=== PATIENT | female | born 1960 | race Caucasian/White ===

== ENCOUNTER → 2016-08-31 | Day surgery (SDC) | payer OTHER ==
[~2016-08-31] MED LIST: CEPH500C3 PO; LACTATED RINGER'S 1000 ML INJ 1,000 ML ONE; LEVO25TA36 PO; OXYC-360 PO; PROPOFOL 500 MG/50 ML BTL IV ONE
== END | disposition home or self-care (01) ==
LOC: ESDC 08:32
PROVIDERS: ATTEND Internal Medicine Gastroenterology
DX: Z12.11 Encounter for screening for malignant neoplasm of colon (principal); R13.10 Dysphagia, unspecified; K44.9 Diaphragmatic hernia without obstruction or gangrene; K22.2 Esophageal obstruction
CPT/HCPCS: 00740; 00810; 43239; 43248; 45378; 88305; 88312; J3010; J7120

== ENCOUNTER → 2017-07-05 | Outpatient (CLI) | payer OTHER ==
[~2017-07-05] MED LIST changes: +BUPR150T3 PO; +FURO40TA PO; +KLOR10TA PO; -LACTATED RINGER'S 1000 ML INJ 1,000 ML ONE; +LEVO175T2 PO; +LISI10TA3 PO; -PROPOFOL 500 MG/50 ML BTL IV ONE; +VERA1TAB17 PO
[2017-07-05 11:20] LABS: HEMATOCRIT 38.4 % (35.0-46.0); MEAN CELL VOLUME 92.9 FL (80.0-100.0); MEAN CORPUSCULAR HEMOGLOBIN 30.7 PG (27.0-34.0); PLATELET COUNT 216 TH/MM3 (150-450); RED BLOOD COUNT 4.14 MIL/MM3 (4.00-5.30); RED CELL DISTRIBUTION WIDTH 12.6 % (11.6-17.2); REVIEW FLAG FINAL; WHITE BLOOD COUNT 4.7 TH/MM3 (4.0-11.0)
[2017-07-05 11:27] LABS: APTT (PATIENT) 25.3 SEC (24.3-30.1); PROTHROMBIN TIME - PATIENT 10.3 SEC (9.8-11.6)
[2017-07-05 11:44] LABS: ANION GAP 8 MEQ/L (5-15); AST (GOT) 17 U/L (15-37); BICARBONATE 27.4 MEQ/L (21.0-32.0); BLOOD UREA NITROGEN 14 MG/DL (7-18); CHLORIDE 105 MEQ/L (98-107); GLOMERULAR FILTRATION RATE 57 ML/MIN (>89); GLUCOSE,FASTING 90 MG/DL (74-99); SODIUM (NA) 140 MEQ/L (136-145)
[2017-07-05 11:48] LABS: ALKALINE PHOSPHATASE 78 U/L (45-117); ALT (GPT) 21 U/L (10-53); TOTAL BILIRUBIN ADULT 0.4 MG/DL (0.2-1.0)
[2017-07-05 12:47] LABS: BACTERIA, URINE RARE /hpf; BLOOD, URINE SMALL (NEG); COMMENT (UR) CATH-CULTURE IND; CULTURE IF INDICATED CATH CULTURE IND; GLUCOSE,URINE NEG (NEG); KETONE, URINE NEG (NEG); MUCUS URINE MANY /lpf (OCC); NITRITE,URINE NEG (NEG); PH, URINE 6.5 (5.0-8.5); SQUAMOUS EPITHELIAL CELL URINE <1 /hpf (0-5); URINE COLOR YELLOW (YELLW/STRAW)
== END ==
LOC: CPRE 10:25
PROVIDERS: ATTEND Surgery
DX: Z01.810 Encounter for preprocedural cardiovascular examination (principal); Z01.812 Encounter for preprocedural laboratory examination; Z01.818 Encounter for other preprocedural examination
CPT/HCPCS: 36415; 80053; 81001; 85027; 85610; 85730; 87086

== ENCOUNTER 2017-07-13 05:15 | Inpatient (IN) | payer OTHER ==
--- NOTE | 2017-07-06 14:57 | MH ---
cc: Angelo RAHMAN M.D. DATE OF ADMISSION: 07/13/2017 ADMITTING DIAGNOSIS: e patient has recent to be a 18-day admission surgery 07/13/2017 ADMISSION DIAGNOSIS Osteoarthritic degeneration left knee now being admitted for left total knee arthroplasty. ADMISSION HISTORY AND PHYSICAL This follow this 48-year O morbidly obese female is being admitted today for osteoarthritic degeneration left knee. OTHER PAST HISTORY: The patient has a history of low back pain hypertension CURRENT MEDICATIONS: Verapamil Levothyroxine PAST SURGERIES Carpal tunnel release Cholecystectomy. REVIEW OF SYSTEMS Noncontributory. FAMILY HISTORY Noncontributory. SOCIAL HISTORY: She does not smoke or drink. ALLERGIES DARVON PHYSICAL EXAMINATION: IN GENERAL: We find a 56-year-old female, morbidly obese, complaining of pain in the left knee. VITAL SIGNS: Blood pressure 126/72, pulse 77 regular, respirations 16, temperature 97.8, pulse oximetry 97% on room air. HEAD, EYES, EARS, NOSE, AND THROAT: Eyes Pupils equal, round and reactive to light, extraocular muscles intact ear, nose, and mouth clear. NECK: Supple LUNGS: Clear. HEART: Regular rate. ABDOMEN: Soft. BOWEL SOUNDS: Nontender. EXTREMITIES: The left knee is tender with crepitance on range of motion. NEUROVASCULAR: She is neurovascularly Intact to her toes. IMPRESSION Time is severe painful osteoarthritic degeneration left knee. PLAN Admission for left total knee arthroplasty today. The patient given prescription postoperative pain anticoagulation control in the office understands the use Hibiclens scrub and Bactroban preoperatively and plans on going to rehab at a halfway facility after surgery. Thank you very much. MD KENDRICK Talavera/mi /2:10 PM /2:39 PM
[~2017-07-13] VITALS: Ht 163.8 cm; Wt 143.2 kg
[~2017-07-13 05:15] MED LIST changes: -CEPH500C3 PO; -LEVO25TA36 PO; -OXYC-360 PO
[2017-07-13] MEDS ORDERED: VANCOMYCIN 1000 MG/NS 250 ML (for <70 kg) IV SCH ×2 (05:45)
[2017-07-13] MEDS ORDERED: ceFAZolin 2 GM PREMIX 50 ML IV SCH (05:45)
[2017-07-13] MEDS ORDERED: POVIDONE IODINE 5% (ANTISEPSIS KIT) 4 APPLICATIONS EACH NARE PRN (05:45)
[2017-07-13] MEDS ORDERED: METOPROLOL TARTRATE 25 MG TAB PO PRN (05:45)
[2017-07-13] MEDS ORDERED: CHLORHEXIDINE GLUCONATE 2 % 1 PACK (2 CLOTHS) TOPICAL PRN (05:45)
[2017-07-13] MEDS ORDERED: LACTATED RINGER'S 1000 ML IV PRN (05:45)
[2017-07-13] MEDS ORDERED: CHLORHEXIDINE GLUCONATE 4% SOLN 120 ML BTL TOPICAL SCH (05:45)
[2017-07-13] MEDS ORDERED: SODIUM CHLORID 0.9% 500 ML IV PRN (05:45)
[2017-07-13] MEDS ORDERED: ceFAZolin INJ 1,000 MG VIAL ONE (06:48)
[2017-07-13] MEDS ORDERED: DEXAMETHASONE SOD PHOS 20 MG/5 ML VIAL IV SCH (07:00)
[2017-07-13] MEDS ORDERED: ROPIVACAINE 0.5% PF INJ 30 ML VIAL ONE (07:26)
[2017-07-13] MEDS ORDERED: SODIUM CHLORIDE 0.9% 20 ML VIAL ONE (07:26)
[2017-07-13] MEDS ORDERED: SODIUM CHLORIDE 0.9% IV SCH ×2 (08:00→11:00)
[2017-07-13] MEDS ORDERED: TRANEXAMIC ACID IV SCH ×2 (08:00→11:00)
[2017-07-13] MEDS ORDERED: BUPIVACAINE LIPOSO PF 1.3% INJ 20 ML in SODIUM CHLORIDE 0.9% INJ 100 ML P-ARTICULR SCH (08:00)
[2017-07-13] MEDS ORDERED: PROPOFOL 500 MG/50 ML INJ 50 ML ONE (08:09)
[2017-07-13] MEDS ORDERED: KETAMINE HCL 500 MG/5 ML VIAL ONE (08:09)
[2017-07-13] MEDS ORDERED: ONDANSETRON HCL 4 MG/2 ML VIAL IVP PRN (10:45)
[2017-07-13] MEDS ORDERED: Post-op Orders (for Pharmacy) XX ONE (10:45)
[2017-07-13] MEDS ORDERED: diphenhydrAMINE HCL 50 MG/ML VIAL IV PUSH PRN (10:45)
[2017-07-13] MEDS ORDERED: TRANEXAMIC ACID INJ 0 MG in SODIUM CHLORIDE 0.9% INJ 100 ML IV SCH (10:45)
[2017-07-13] MEDS ORDERED: TEMAZEPAM 15 MG CAP PO PRN (10:45)
[2017-07-13] MEDS ORDERED: NALOXONE HCL 0.4 MG/ML AMP IV PUSH PRN (10:45)
--- NOTE | 2017-07-13 10:49 | HHI.FF ---
Face to Face Verification Diagnosis: (1) Status post total left knee replacement Physical Therapy Gait training Knee: Total knee, Protocol: Left, Full weight bearing Canvas Knee Splint: When in bed & 2 pillows btw thighs Nursing RN: 3 days/week x 2 weeks Nursing: Dressing changes Dressing Changes: Daily dressing change, 4x4s, Gauze, Paper tape I have seen patient Anitra Gunter on 07/13/17. My clinical findings support the need for the requested home health care services because: Limited ability to care for self High risk of falls I certify that my clinical findings support that this patient is homebound because: Unsteady gait/balance Angelo Landrum MD Jul 13, 2017 10:49
[2017-07-13] MEDS ORDERED: ADJUSTABLE COMM1 MIS (10:51)
[2017-07-13] MEDS ORDERED: WALKER WHEELS/F1 MIS (10:51)
[2017-07-13] MEDS ORDERED: CPMMACHINE (10:51)
[2017-07-13] MEDS: LACTATED RINGER'S 1000 ML INJ 1,000 ML IV SCH ×2 (11:00→22:40)
[2017-07-13] MEDS ORDERED: DO NOT ADM ANY ANTICOAGULANT DRUGS PRN (11:00)
--- NOTE | 2017-07-13 11:06 | HHI.PR ---
Immediate Post Op Note Procedure Date: Jul 13, 2017 Pre Op Diagnosis: Osteoarthritic degeneration left knee Post Op Diagnosis: Osteoarthritic degeneration left knee Surgeon: Angelo Landrum MD Web Content Writer(s): Anitra ROBERTS Procedure: Left Total Knee Arthroplasty Complications: none Specimen(s) removed: none Estimated blood loss: 100cc Anesthesia: Spinal Drains: None IVF Urinary Output (mLs): 0 (no sullivan) Tourniquet time (min at mmHg) 70 mins at 300 mmHg Patient to: PACU Patient Condition: Good Implant/Devices: SEE IMPLANT LOG (if applicable) Date/Time of Procedure: SEE SURGICAL CARE RECORD Anitra Douglas Jul 13, 2017 11:06
--- NOTE | 2017-07-13 11:11 | MP ---
cc: Angelo RAHMAN M.D. DATE OF SURGERY: 07/13/2017 PREOPERATIVE DIAGNOSIS: Severe osteoarthritic degeneration left knee. POSTOPERATIVE DIAGNOSIS: Severe osteoarthritic degeneration left knee. OPERATION: Left total knee arthroplasty SURGEON Dr. Rahman COMPUTER TECHNOLOGY INSTRUCTOR: ARMANDO Tellez ANESTHESIA: General intubation and block. Exparel 120 cc around knee joint for extra pain control. ESTIMATED BLOOD LOSS: COUNTS: Sponge and suture counts were correct. COMPONENTS: Consensus components size four femur, three tibia, 12 insert and one patella, two batches of Depuye cement PROCEDURE: After successful induction of anesthesia, the patient is placed on the operating room table in the supine position. The knee is prepped and draped in the usual manner. A tourniquet is inflated at the upper thigh and set to 300 mmHg pressure after exsanguination of the lower extremity. A longitudinal incision is made extending from 3 inches proximal to the superior pole of the patella, across the patella in longitudinal fashion, and down past the insertion of the tibial tubercle into the proximal tibia. The incision is carried down through subcutaneous tissue along the medial aspect of the patella and retinaculum, down through the capsule to expose the knee joint. The patella and patellar tendon are freed up enough to allow the patella to be inverted and retracted off the lateral side of the knee joint. The knee joint is left exposed. Small osteophytes are removed. All soft tissue is removed to allow proper position of the femoral and tibial cutting jig guide. The first femoral jig is then inserted along the distal end of the femur after first measuring to decide whether this is a small, medium, or large component. The notch is then drilled and the tibial cutting guide inserted into the femoral cutting guide, along with the ankle brace to allow for proper measurement of the tibial cutting surface that needed to be resected. Pins are inserted into the tibial cutting jig and femoral cutting jig to hold them in place. An oscillating saw is then used to resect the surface of the tibia. The surface of the tibia is then completely removed using sharp and blunt dissection. The anterior and posterior cuts of the femur are then made as well using an oscillating saw through the cutting guide. All guides are then removed and the varus/valgus angulation cutting guide applied to the femur for proper measurement of the proper amount of valgus. The anterior cutting guide for the femur is then inserted at the anterior femoral cuts made. Next, the first block trial is inserted into the femur to allow for proper condyle drill holes to be made which are then made followed by removal of the bone between the condyles using an oscillating saw as well as the bone removed at the most posterior surface of the condyle. After this, this guide is removed and the chamfer cuts made using the chamfer cutting guide from both anterior and posterior. Next, the femoral trial is then inserted, the tibial surface reflected anterior to expose the tibial surface and a tibial stem guide is inserted after first measuring for a standard, standard plus, large, or large plus surface to be used. After the stem is impacted the trial tibial surface is applied followed by the trial meniscal components. After full range of motion is found with the appropriate length meniscal components varying the patella is prepared by resecting the posterior aspect of the patella using an oscillating saw, inserting a trial. The trial is then removed and the cruciate cutting guide applied using the bur to cut the cruciate cuts. After cruciate cuts are made all trials are removed. The wound is irrigated copiously with antibiotic solution and Water Pik and the actual components inserted into place. After the cement has hardened and the components are found to have full range of motion with no instability, the tourniquet is deflated, total tourniquet time being 110 minutes at 300 mmHg pressure. 120 cc of Exparel used around the knee joint for extra pain control. The wound again is irrigated copiously with antibiotic solution, meticulous hemostasis achieved. Two Autovac tubes inserted, Deep fascia approximated with running #2 quill subcutaneous tissue approximated multiple layers using interrupted 2-0 and 3-0 Monocryl sutures. Steri-Strips sterile dressing knee immobilizer. No drain utilized. An extra hour of surgery time was needed in this case due to the patient's morbid obesity and the necessity of going through multiple layers of lipomatous material and necessity of closing it again in several layers and the difficulty and flexing the knee. The patient tolerated the procedure well and left the operating room in satisfactory condition and Mindi ROBERTS was present during the entire procedure to include patient positioning and the procedure. The medical necessity of the nurse practitioner web marketing assistant was indicated this case due to the surgical complexity of the case itself. During the surgical case the operating room surgical technician was working the back table while my surgical assistant certified ARMANDO was directly assisting me. JMD Michelle Miller /10:26 AM /10:31 AM
--- NOTE | 2017-07-13 11:41 | RADRPT ---
EXAM DATE/TIME: 07/13/2017 11:24 [facility] COMPARISON: No previous studies available for comparison. INDICATIONS : Post-op total left knee arthroplasty. MEDICAL HISTORY : None. SURGICAL HISTORY : None. ENCOUNTER: Initial ACUITY: 1 day PAIN SCORE: Non-responsive. LOCATION: Left knee FINDINGS: Two view examination of the left knee demonstrates postsurgical changes following knee replacement. P rosthetic components are well seated and satisfactorily aligned. Bony structures are intact. CONCLUSION: Satisfactory post operative appearance of the left knee following joint replacement. John Campos MD on July 13, 2017 at 11:39 Board Certified Radiologist. This report was verified electronically.
[2017-07-13] MEDS ORDERED: ePHEDrine/NS 25 MG/5 ML SYRINGE IV ONE (12:00)
[2017-07-13] MEDS ORDERED: PROPOFOL 200 MG/20 ML AMP IV ONE (12:00)
[2017-07-13] MEDS ORDERED: DEXAMETHASONE SOD PHOS 4 MG/ML VIAL IV ONE (12:00)
[2017-07-13] MEDS ORDERED: LACTATED RINGER'S 1000 ML INJ 1,000 ML IV ONE (12:00)
[2017-07-13] MEDS ORDERED: KETOROLAC TROMETHAMINE 30 MG/ML (IVP) VIAL IV PUSH ONE (12:00)
[2017-07-13] MEDS ORDERED: MORPHINE SULFATE 2 MG/ML INJ IV PUSH PRN (13:00)
[2017-07-13 13:45] VITALS: BP 106/56; PULSE 79; RESP 18; TEMP 96.6; O2SAT 93
[2017-07-13 16:00] VITALS: BP_SYST 126; BP_SYST 135; BP_DIAS 67; BP_DIAS 75; PULSE 79; PULSE 87; RESP 16; RESP 18; TEMP 96.4; TEMP 96.7; O2SAT 94; O2SAT 96
[2017-07-13 21:53] VITALS: BP 131/68; PULSE 96; RESP 20; TEMP 97.3; O2SAT 96
[2017-07-14 00:58] VITALS: BP 123/57; PULSE 96; RESP 18; TEMP 97.1; O2SAT 96
[2017-07-14 04:52] VITALS: BP 112/59; PULSE 93; RESP 18; TEMP 97.6; O2SAT 96
[2017-07-14] MEDS: LEVOTHYROXINE SODIUM 150 MCG TAB PO SCH (06:00)
[2017-07-14] MEDS: LEVOTHYROXINE SODIUM 25 MCG TAB PO SCH (06:00)
[2017-07-14 07:13] LABS: HEMATOCRIT 32.3 % (35.0-46.0)
[2017-07-14] MEDS ORDERED: OXYC-395 PO (07:27)
--- NOTE | 2017-07-14 07:29 | PD.ORT.PN ---
Subjective Subjective Remarks Pt fairly comfortable at moment. Block wore off. Objective Vitals Vital Signs Date Time Temp Pulse Resp B/P (MAP) Pulse Ox O2 Delivery O2 Flow Rate FiO2 07/14/17 04:52 97.6 93 18 112/59 (76) 96 07/14/17 00:58 97.1 96 18 123/57 (79) 96 07/13/17 21:53 97.3 96 20 131/68 (89) 96 07/13/17 16:00 96.7 87 18 135/67 (89) 94 07/13/17 16:00 96.4 79 16 126/75 (92) 96 07/13/17 15:27 18 07/13/17 13:45 96.6 79 18 106/56 (73) 93 07/13/17 13:15 97.9 73 20 107/54 (71) 98 Nasal Cannula 2 07/13/17 13:00 75 20 108/53 (71) 98 Nasal Cannula 2 07/13/17 12:45 75 20 110/52 (71) 97 Nasal Cannula 2 07/13/17 12:30 74 20 104/51 (68) 97 Nasal Cannula 2 07/13/17 12:15 74 20 98/55 (69) 97 Nasal Cannula 2 07/13/17 12:00 73 20 107/54 (71) 97 Nasal Cannula 2 07/13/17 11:45 73 20 90/50 (63) 97 Nasal Cannula 2 07/13/17 11:30 73 20 90/50 (63) 97 Nasal Cannula 2 07/13/17 11:15 74 20 96/46 (63) 96 Nasal Cannula 2 07/13/17 11:07 97.9 77 20 95/47 (63) 93 Simple Mask 2 I/O 07/13/17 07/13/17 07/13/17 07/14/17 07/14/17 07/14/17 07:00 15:00 23:00 07:00 15:00 23:00 Intake Total 1500 ml 100 ml Output Total 3050 ml Balance -1550 ml 100 ml Intake IV Total 1500 ml 100 ml Output Estimated Blood Loss 50 ml Other 3000 ml # Voids 2 3 # Bowel Movements 0 0 Result Diagram: 07/14/17 0545 Imaging Last 24 hours Impressions Knee X-Ray 07/13/17 1043 Signed Impressions: Service Date/Time: Thursday, July 13, 2017 11:24 - CONCLUSION: Satisfactory post operative appearance of the left knee following joint replacement. John Campos MD Objective Remarks NV intact to toes. In bed at moment. No calf tenderness. Assessment & Plan Ortho Post Op Day #: 1 Problem List: Assessment and Plan PT wound care, OOB, SNF possibly tomorrow. Angelo Landrum MD Jul 14, 2017 07:29
[2017-07-14 07:50] VITALS: BP 120/58; PULSE 91; RESP 19; TEMP 96.9; O2SAT 94
[2017-07-14] MEDS: POTASSIUM CHLORIDE 10 MEQ CONTROLLED RELEASE TAB PO SCH (08:32)
[2017-07-14] MEDS: VERAPAMIL HCL 240 MG SUSTAINED RELEASE TAB PO SCH (08:32)
[2017-07-14] MEDS: FUROSEMIDE 40 MG TAB PO SCH (08:32)
[2017-07-14] MEDS: buPROPion HCL 150 MG SUSTAINED RELEASE TAB PO SCH (08:32)
[2017-07-14] MEDS: LISINOPRIL 10 MG TAB PO SCH (08:32)
[2017-07-14] MEDS: APIXABAN 2.5 MG TABLET PO SCH ×2 (10:08→19:48)
[2017-07-14 11:32] VITALS: BP 110/56; PULSE 88; RESP 19; TEMP 95.8; O2SAT 98
[2017-07-14] MEDS: LACTATED RINGER'S 1000 ML INJ 1,000 ML IV SCH ×2 (12:00→19:50)
[2017-07-14 15:37] VITALS: BP 127/67; PULSE 88; RESP 19; TEMP 97.5; O2SAT 100
[2017-07-14] MEDS: DOCUSATE SODIUM 100 MG CAP PO SCH (19:47)
[2017-07-14] MEDS: MULTIVITAMINS/MINERALS THERAPEUTIC TAB PO SCH (19:47)
[2017-07-14 20:42] VITALS: BP 119/67; PULSE 83; RESP 17; TEMP 96.8; O2SAT 99
[2017-07-15 00:09] VITALS: BP 111/58; PULSE 90; RESP 18; TEMP 97.4; O2SAT 95
[2017-07-15 04:54] LABS: HEMATOCRIT 30.6 % (35.0-46.0); HEMOGLOBIN 10.4 GM/DL (11.6-15.3)
[2017-07-15] MEDS: LEVOTHYROXINE SODIUM 25 MCG TAB PO SCH (06:07)
[2017-07-15] MEDS: LEVOTHYROXINE SODIUM 150 MCG TAB PO SCH (06:07)
[2017-07-15 08:00] VITALS: BP 128/61; PULSE 100; RESP 19; TEMP 98.1; O2SAT 97
[2017-07-15] MEDS: MULTIVITAMINS/MINERALS THERAPEUTIC TAB PO SCH ×2 (08:36→21:15)
[2017-07-15] MEDS: DOCUSATE SODIUM 100 MG CAP PO SCH ×2 (08:36→21:14)
[2017-07-15] MEDS: buPROPion HCL 150 MG SUSTAINED RELEASE TAB PO SCH (08:36)
[2017-07-15] MEDS: VERAPAMIL HCL 240 MG SUSTAINED RELEASE TAB PO SCH (08:36)
[2017-07-15] MEDS: FUROSEMIDE 40 MG TAB PO SCH (08:37)
[2017-07-15] MEDS: LISINOPRIL 10 MG TAB PO SCH (08:37)
[2017-07-15] MEDS: POTASSIUM CHLORIDE 10 MEQ CONTROLLED RELEASE TAB PO SCH (08:37)
[2017-07-15] MEDS: APIXABAN 2.5 MG TABLET PO SCH ×2 (08:37→21:14)
[2017-07-15] MEDS: LACTATED RINGER'S 1000 ML INJ 1,000 ML IV SCH (08:39)
[2017-07-15] MEDS ORDERED: BACITRACIN OINT 0.9 GM PKT TOP PRN (10:15)
[2017-07-15 12:00] VITALS: BP 120/56; PULSE 97; RESP 18; TEMP 98; O2SAT 97
--- NOTE | 2017-07-15 12:45 | PD.ORT.PN ---
Subjective Subjective Remarks Pt fairly comfortable at moment. Objective Vitals Vital Signs Date Time Temp Pulse Resp B/P (MAP) Pulse Ox O2 Delivery O2 Flow Rate FiO2 07/15/17 12:00 98.0 97 18 120/56 (77) 97 07/15/17 08:00 98.1 100 19 128/61 (83) 97 07/15/17 00:09 97.4 90 18 111/58 (75) 95 07/14/17 20:42 96.8 83 17 119/67 (84) 99 07/14/17 15:37 97.5 88 19 127/67 (87) 100 07/14/17 14:50 18 I/O 07/14/17 07/14/17 07/14/17 07/15/17 07/15/17 07/15/17 07:00 15:00 23:00 07:00 15:00 23:00 Intake Total 850 ml 240 ml 240 ml Balance 850 ml 240 ml 240 ml Intake Oral 850 ml 240 ml 240 ml # Voids 3 1 1 1 # Bowel Movements 0 0 0 0 Result Diagram: 07/15/17 0402 Imaging Last 24 hours Impressions Knee X-Ray 07/13/17 1043 Signed Impressions: Service Date/Time: Thursday, July 13, 2017 11:24 - CONCLUSION: Satisfactory post operative appearance of the left knee following joint replacement. John Campos MD Objective Remarks NV intact to toes. In bed at moment. No calf tenderness. Assessment & Plan Ortho Post Op Day #: 2 Problem List: Assessment and Plan PT wound care, OOB, SNF possibly today. Angelo Landrum MD Jul 15, 2017 12:45
--- NOTE | 2017-07-15 12:48 | HHI.DS ---
Discharge Summary Admission Date Jul 13, 2017 at 05:15 Discharge Date: Jul 15, 2017 Admitting Diagnosis Osteoarthritic degeneration left knee Diagnosis: (1) Status post total left knee replacement Diagnosis: Principal ICD Codes: Z96.652 - Presence of left artificial knee joint Brief History This is a 56 year old female patient CBC/BMP: 07/15/17 0402 Significant Findings Laboratory Tests Test 07/14/17 05:45 07/15/17 04:02 Hemoglobin 11.0 GM/DL (11.6-15.3) 10.4 GM/DL (11.6-15.3) Hematocrit 32.3 % (35.0-46.0) 30.6 % (35.0-46.0) PE at Discharge NV intact to toes. In bed at moment. No calf tenderness. Hospital Course Patient underwent a left total knee arthroplasty on day of admission. Within 23 hours started anticoagulation therapy. She received a course of prophylactic IV antibiotics started before surgery. She continued to improve remaining afebrile vital signs stable and neurovascularly intact and began out of bed tolerating food and fluids well in physical therapy. She received daily wound care and was discharged on the second postoperative day to [facility] facility for continuation of care in good condition. Pt Condition on Discharge: Good Discharge Disposition: Discharge to SNF Discharge Instructions Diet Instructions: As Tolerated, No Restrictions Activities You Can Perform: Full Weight Bearing, Shower Only-No Bath Activities to Avoid: Bathing, Driving Angelo Landrum MD Jul 15, 2017 12:47
[2017-07-15] MEDS ORDERED: MAGNESIUM HYDROXIDE SUSP 30 ML CUP PO ONE (15:15)
[2017-07-15 16:00] VITALS: BP 116/65; PULSE 92; RESP 19; TEMP 97.1; O2SAT 96
[2017-07-15 20:25] VITALS: BP 127/56; PULSE 95; RESP 17; TEMP 98.7; O2SAT 98
[2017-07-15] MEDS: MAGNESIUM HYDROXIDE SUSP 30 ML CUP PO SCH (21:15)
[2017-07-15 23:15] VITALS: BP 120/70; PULSE 96; RESP 17; TEMP 99.2; O2SAT 96
[2017-07-16] MEDS: LACTATED RINGER'S 1000 ML INJ 1,000 ML IV SCH ×2 (01:30→13:55)
[2017-07-16] MEDS ORDERED: BISACODYL 10 MG SUPP RECTAL PRN (05:15)
[2017-07-16] MEDS: LEVOTHYROXINE SODIUM 25 MCG TAB PO SCH (05:31)
[2017-07-16] MEDS: LEVOTHYROXINE SODIUM 150 MCG TAB PO SCH (05:32)
[2017-07-16 08:35] VITALS: BP 140/65; PULSE 97; RESP 20; TEMP 99.1; O2SAT 98
[2017-07-16] MEDS: MAGNESIUM HYDROXIDE SUSP 30 ML CUP PO SCH (08:38)
[2017-07-16] MEDS: DOCUSATE SODIUM 100 MG CAP PO SCH (08:38)
[2017-07-16] MEDS: VERAPAMIL HCL 240 MG SUSTAINED RELEASE TAB PO SCH (08:39)
[2017-07-16] MEDS: buPROPion HCL 150 MG SUSTAINED RELEASE TAB PO SCH (08:39)
[2017-07-16] MEDS: FUROSEMIDE 40 MG TAB PO SCH (08:39)
[2017-07-16] MEDS: POTASSIUM CHLORIDE 10 MEQ CONTROLLED RELEASE TAB PO SCH (08:39)
[2017-07-16] MEDS: APIXABAN 2.5 MG TABLET PO SCH (08:40)
[2017-07-16] MEDS: LISINOPRIL 10 MG TAB PO SCH (08:40)
[2017-07-16] MEDS: MULTIVITAMINS/MINERALS THERAPEUTIC TAB PO SCH (08:40)
[2017-07-16 11:56] VITALS: BP 98/64; PULSE 85; RESP 20; TEMP 96.8; O2SAT 95
[2017-07-16] MEDS ORDERED: APIX2.5T PO (13:42)
--- NOTE | 2017-07-16 14:16 | PD.ORT.PN ---
Subjective Subjective Remarks Pt painful at moment. Objective Vitals Vital Signs Date Time Temp Pulse Resp B/P (MAP) Pulse Ox O2 Delivery O2 Flow Rate FiO2 07/16/17 11:56 96.8 85 20 98/64 (75) 95 07/16/17 08:35 99.1 97 20 140/65 (90) 98 07/15/17 23:15 99.2 96 17 120/70 (87) 96 07/15/17 20:25 98.7 95 17 127/56 (79) 98 07/15/17 16:00 97.1 92 19 116/65 (82) 96 I/O 07/15/17 07/15/17 07/15/17 07/16/17 07/16/17 07/16/17 07:00 15:00 23:00 07:00 15:00 23:00 Intake Total 240 ml 1440 ml 360 ml 240 ml Output Total 400 ml Balance 240 ml 1040 ml 360 ml 240 ml Intake Oral 240 ml 1440 ml 360 ml 240 ml Output Urine Total 400 ml # Voids 1 2 1 1 # Bowel Movements 0 0 0 Result Diagram: 07/15/17 0402 Imaging Last 24 hours Impressions Knee X-Ray 07/13/17 1043 Signed Impressions: Service Date/Time: Thursday, July 13, 2017 11:24 - CONCLUSION: Satisfactory post operative appearance of the left knee following joint replacement. John Campos MD Objective Remarks NV intact to toes. In bed at moment. No calf tenderness. Assessment & Plan Ortho Post Op Day #: 3 Problem List: (1) Status post total left knee replacement ICD Codes: Z96.652 - Presence of left artificial knee joint Assessment and Plan PT wound care, OOB, SNF today. Angelo Landrum MD Jul 16, 2017 14:16
[2017-07-16 14:32] VITALS: BP 131/77
== END 2017-07-16 16:16 | DRG 470 ==
LOC: HSDI 05:15 → N06A 14:00
PROVIDERS: ADMIT Surgery; ATTEND Surgery
PROC: 3E0T3BZ Introduction of Anesthetic Agent into Peripheral Nerves and Plexi, Percutaneous Approach (ICD-10-PCS; 2017-07-13)
PROC: 0SRD0J9 Replacement of Left Knee Joint with Synthetic Substitute, Cemented, Open Approach (ICD-10-PCS; principal; 2017-07-13 07:52)
DX: M17.12 Unilateral primary osteoarthritis, left knee (principal); E66.01 Morbid (severe) obesity due to excess calories; I10 Essential (primary) hypertension; M54.5 Low back pain
CPT/HCPCS: 73560; 85014; 85018; 86850; 86900; 86901; 94150; C1776; C9290; J0690; J1100; J1885; J2405; J2795; J3370; J7050; J7120; L1830

== ENCOUNTER → 2017-11-08 | Outpatient (CLI) | payer OTHER ==
[~2017-11-08] MED LIST changes: +ADJUSTABLE COMM1 MIS; +APIX2.5T PO; +CPMMACHINE; +HYDR-3580 PO; +OXYC-395 PO; +WALKER WHEELS/F1 MIS
[2017-11-08 09:17] LABS: AUTOMATED NEUTROPHIL # 2.4 TH/MM3 (1.8-7.7); BASOPHIL % 0.9 % (0.0-2.0); EOSINOPHIL # 0.1 TH/MM3 (0-0.4); EOSINOPHIL % 2.7 % (0.0-4.0); HEMATOCRIT 37.2 % (35.0-46.0); HEMOGLOBIN 12.7 GM/DL (11.6-15.3); LYMPH % 28.9 % (9.0-44.0); LYMPHOCYTE # 1.2 TH/MM3 (1.0-4.8); MEAN CORPUSCULAR HEMOGLOBIN 30.4 PG (27.0-34.0); MEAN CORPUSCULAR HGB CONC 34.1 % (32.0-36.0); MEAN PLATELET VOLUME 8.4 FL (7.0-11.0); MONO % 9.9 % (0.0-8.0); MONOCYTE # 0.4 TH/MM3 (0-0.9); NEUT % 57.6 % (16.0-70.0); PLATELET COUNT 227 TH/MM3 (150-450); RED BLOOD COUNT 4.18 MIL/MM3 (4.00-5.30); WHITE BLOOD COUNT 4.1 TH/MM3 (4.0-11.0)
[2017-11-08 09:23] LABS: INTERNATIONAL NORMALIZED RATIO 1.1 RATIO; PROTHROMBIN TIME - PATIENT 10.7 SEC (9.8-11.6)
[2017-11-08 09:42] LABS: ALBUMIN 3.7 GM/DL (3.4-5.0); BICARBONATE 24.2 MEQ/L (21.0-32.0); BLOOD UREA NITROGEN 17 MG/DL (7-18); CALCIUM 9.1 MG/DL (8.5-10.1); CHLORIDE 106 MEQ/L (98-107); SODIUM (NA) 140 MEQ/L (136-145)
[2017-11-08 09:45] LABS: ALT (GPT) 24 U/L (10-53); AST (GOT) 20 U/L (15-37); CREATININE 0.91 MG/DL (0.50-1.00); GLOMERULAR FILTRATION RATE 63 ML/MIN (>89); GLUCOSE,FASTING 78 MG/DL (74-99)
[2017-11-08 09:49] LABS: ALKALINE PHOSPHATASE 65 U/L (45-117); TOTAL BILIRUBIN ADULT 0.3 MG/DL (0.2-1.0); TOTAL PROTEIN 7.9 GM/DL (6.4-8.2)
[2017-11-08 10:51] LABS: BILIRUBIN, URINE NEG (NEG); BLOOD, URINE TRACE (NEG); GLUCOSE,URINE NEG (NEG); KETONE, URINE 40 mg/dL (NEG); MUCUS URINE FEW /lpf (OCC); NITRITE,URINE NEG (NEG); PH, URINE 5.5 (5.0-8.5); SQUAMOUS EPITHELIAL CELL URINE 1 /hpf (0-5); URINE COLOR YELLOW (YELLW/STRAW); URINE LEUKOCYTE ESTERASE MOD (NEG)
== END ==
LOC: CPRE 08:00
PROVIDERS: ATTEND Surgery
DX: Z01.812 Encounter for preprocedural laboratory examination (principal); M79.609 Pain in unspecified limb
CPT/HCPCS: 36415; 80053; 81001; 85025; 85610; 85730

== ENCOUNTER 2017-11-15 05:18 | Observation (INO) | payer OTHER ==
--- NOTE | 2017-11-11 16:49 | MH ---
cc: Angelo Landrum MD DATE OF ADMISSION: 11/15/2017 ADMITTING DIAGNOSIS: Osteoarthritic degeneration, right knee. HISTORY OF PRESENT ILLNESS: This pleasant, morbidly obese, 57-year-old female is being admitted today for a right total knee arthroplasty due to severe painful osteoarthritic degeneration. OTHER PAST HISTORY: She has had a left total knee in the past. She has a history of back pain, hypertension and arthritis. CURRENT MEDICATIONS: 1. Verapamil. 2. Levothyroxine. PREVIOUS SURGERIES: The left total knee, cholecystectomy and carpal tunnel release. REVIEW OF SYSTEMS: Noncontributory. FAMILY HISTORY: Noncontributory. SOCIAL HISTORY: She does not smoke or drink. ALLERGIES: ALLERGIC TO DARVON. PHYSICAL EXAMINATION: GENERAL: We find a 57-year-old female, well-developed, well-nourished, oriented x3, complaining of pain in her right knee. VITAL SIGNS: Blood pressure 138/84, pulse 76 and regular, respirations 16, temperature 98.1, pulse oximetry 97% on room air. HEENT: Eyes: PERRLA, EOMI. Ears, nose and mouth: Clear. NECK: Supple. LUNGS: Clear. HEART: Regular rate. ABDOMEN: Soft, positive bowel sounds, nontender. EXTREMITIES: Right knee is tender with crepitance throughout range of motion. Neurovascularly intact to her toes. IMPRESSION AT THIS TIME: Severe painful osteoarthritic degeneration, right knee. PLAN: Admission for a right total knee arthroplasty today. The patient understands the procedure well and risks involved, wished to proceed with surgery as soon as possible. She plans on going to rehab center after surgical stay in the hospital. MD KENDRICK Lozano/AMANDA , 04:35 PM , 04:48 PM
[~2017-11-15] VITALS: Ht 163.8 cm; Wt 133.2 kg
[2017-11-15] MEDS: LEVOTHYROXINE SODIUM 75 MCG TAB PO SCH (04:10)
[2017-11-15] MEDS: LISINOPRIL 10 MG TAB PO SCH (04:10)
[2017-11-15] MEDS: buPROPion HCL 150 MG SUSTAINED RELEASE TAB PO SCH (04:10)
[2017-11-15] MEDS: LEVOTHYROXINE SODIUM 100 MCG TAB PO SCH (04:10)
[2017-11-15] MEDS: VERAPAMIL HCL 240 MG SUSTAINED RELEASE TAB PO SCH (04:10)
[~2017-11-15 05:18] MED LIST changes: -ADJUSTABLE COMM1 MIS; -APIX2.5T PO; -CPMMACHINE; -FURO40TA PO; -HYDR-3580 PO; -KLOR10TA PO; -OXYC-395 PO; -WALKER WHEELS/F1 MIS
[2017-11-15] MEDS ORDERED: FAT EMULSION 20% INJ 250 ML ONE (05:38)
[2017-11-15] MEDS ORDERED: METOPROLOL TARTRATE 25 MG TAB PO PRN (05:45)
[2017-11-15] MEDS ORDERED: POVIDONE IODINE 5% (ANTISEPSIS KIT) 4 APPLICATIONS EACH NARE PRN (05:45)
[2017-11-15] MEDS ORDERED: CHLORHEXIDINE GLUCONATE 2 % 1 PACK (2 CLOTHS) TOPICAL PRN (05:45)
[2017-11-15] MEDS ORDERED: TRANEXAMIC ACID INJ 1,330 MG in SODIUM CHLORIDE 0.9% INJ 100 ML IV SCH ×4 (05:45)
[2017-11-15] MEDS ORDERED: ceFAZolin 2 GM PREMIX 50 ML IV SCH (05:45)
[2017-11-15] MEDS ORDERED: BUPIVACAINE LIPOSO PF 1.3% INJ 20 ML, BUPIVACAINE PF 0.25% INJ 20 ML in SODIUM CHLORIDE... P-ARTICULR SCH (05:45)
[2017-11-15] MEDS ORDERED: LACTATED RINGER'S 1000 ML IV PRN (05:45)
[2017-11-15] MEDS ORDERED: VANCOMYCIN 1000 MG/NS 250 ML (for <70 kg) IV SCH (05:45)
[2017-11-15] MEDS ORDERED: SODIUM CHLORID 0.9% 500 ML IV PRN (05:45)
[2017-11-15] MEDS ORDERED: CHLORHEXIDINE GLUCONATE 4% SOLN 120 ML BTL TOPICAL SCH (05:45)
[2017-11-15 05:57] VITALS: PULSE 84
[2017-11-15] MEDS ORDERED: DEXAMETHASONE SOD PHOS 20 MG/5 ML VIAL IV PUSH ONE (06:15)
[2017-11-15] MEDS ORDERED: ceFAZolin INJ 1,000 MG VIAL ONE (06:21)
[2017-11-15] MEDS ORDERED: BUPIVACAINE LIPOSOME PF 1.3% 20 ML VIAL ONE (06:58)
[2017-11-15] MEDS ORDERED: BUPIVACAINE/EPINEPHRINE 0.25% PF 10 ML VIAL ONE (06:59)
[2017-11-15] MEDS ORDERED: NALOXONE HCL 0.4 MG/ML AMP IV PUSH PRN (07:30)
[2017-11-15] MEDS ORDERED: diphenhydrAMINE HCL 50 MG/ML VIAL IV PUSH PRN (07:30)
[2017-11-15] MEDS ORDERED: TRANEXAMIC ACID INJ 0 MG in SODIUM CHLORIDE 0.9% INJ 100 ML IV SCH (07:30)
[2017-11-15] MEDS ORDERED: ONDANSETRON HCL 4 MG/2 ML VIAL IVP PRN (07:30)
[2017-11-15] MEDS ORDERED: ACETAMINOPHEN 325 MG TAB PO PRN (07:30)
[2017-11-15] MEDS ORDERED: Post-op Orders (for Pharmacy) XX ONE (07:30)
[2017-11-15] MEDS ORDERED: TEMAZEPAM 15 MG CAP PO PRN (07:30)
[2017-11-15] MEDS ORDERED: MORPHINE SULFATE 4 MG/ML INJ IV PUSH PRN (07:30)
[2017-11-15] MEDS ORDERED: CPMMACHINE (07:35)
[2017-11-15] MEDS ORDERED: ADJUSTABLE COMM1 MIS (07:35)
[2017-11-15] MEDS ORDERED: WALKER WHEELS/F1 MIS (07:35)
[2017-11-15] MEDS ORDERED: MIDAZOLAM HCL 2 MG/2 ML VIAL ONE (10:15)
--- NOTE | 2017-11-15 10:17 | MP ---
cc: Angelo Landrum MD DATE OF OPERATION: 11/15/2017 PREOPERATIVE DIAGNOSIS: Osteoarthritic degeneration, right knee. POSTOPERATIVE DIAGNOSIS: Osteoarthritic degeneration, right knee. PROCEDURE PERFORMED: Right total knee arthroplasty using Consensus components size 5 femur, 3 tibia with a 12 insert and a size 1 x 7.5 mm patella with 2 batches of DePuy cement. SURGEON: Angelo Landrum MD. MECHANIC WELDER: ARMANDO Keith. ANESTHESIA: General intubation and block. PROCEDURE: After successful induction of anesthesia, the patient is placed on the operating room table in the supine position. The knee is prepped and draped in the usual manner. A tourniquet is inflated at the upper thigh and set to 300 mmHg pressure after exsanguination of the lower extremity. A longitudinal incision is made extending from 3 inches proximal to the superior pole of the patella, across the patella in longitudinal fashion, and down past the insertion of the tibial tubercle into the proximal tibia. The incision is carried down through subcutaneous tissue along the medial aspect of the patella and retinaculum, down through the capsule to expose the knee joint. The patella and patellar tendon are freed up enough to allow the patella to be inverted and retracted off the lateral side of the knee joint. The knee joint is left exposed. Small osteophytes are removed. All soft tissue is removed to allow proper position of the femoral and tibial cutting jig guide. The first femoral jig is then inserted along the distal end of the femur after first measuring to decide whether this is a small, medium, or large component. The notch is then drilled and the tibial cutting guide inserted into the femoral cutting guide, along with the ankle brace to allow for proper measurement of the tibial cutting surface that needed to be resected. Pins are inserted into the tibial cutting jig and femoral cutting jig to hold them in place. An oscillating saw is then used to resect the surface of the tibia. The surface of the tibia is then completely removed using sharp and blunt dissection. The anterior and posterior cuts of the femur are then made as well using an oscillating saw through the cutting guide. All guides are then removed and the varus/valgus angulation cutting guide applied to the femur for proper measurement of the proper amount of valgus. The anterior cutting guide for the femur is then inserted at the anterior femoral cuts made. Next, the first block trial is inserted into the femur to allow for proper condyle drill holes to be made which are then made followed by removal of the bone between the condyles using an oscillating saw as well as the bone removed at the most posterior surface of the condyle. After this, this guide is removed and the chamfer cuts made using the chamfer cutting guide from both anterior and posterior. Next, the femoral trial is then inserted, the tibial surface reflected anterior to expose the tibial surface and a tibial stem guide is inserted after first measuring for a standard, standard plus, large, or large plus surface to be used. After the stem is impacted the trial tibial surface is applied followed by the trial meniscal components. After full range of motion is found with the appropriate length meniscal components varying the patella is prepared by resecting the posterior aspect of the patella using an oscillating saw, inserting a trial. The trial is then removed and the cruciate cutting guide applied using the bur to cut the cruciate cuts. After cruciate cuts are made all trials are removed. The wound is irrigated copiously with antibiotic solution and Water Pik and the actual components inserted into place using the aforementioned components. After the cement has hardened and the components are found to have full range of motion with no instability. Tourniquet deflated. Total tourniquet time being 53 minutes at 300 mmHg pressure. Meticulous hemostasis achieved, 120 mL of a combination of Exparel with 0.25% Marcaine plain and normal saline inserted around the knee joint for extra pain control. Deep fascia was approximated with running #2 Quill. Subcutaneous tissue approximated in multiple layers with 2-0, 3-0 and 4-0 Monocryl suture and Primapore dressing. No drain utilized. ESTIMATED BLOOD LOSS: 100 mL. COUNTS: Sponge and suture counts were correct. The patient tolerated the procedure well and left the operating room in satisfactory condition. An extra 30 minutes of surgical time was necessary in this case due to the morbid obesity of the patient and ARMANDO Keith was present during the entire procedure to include patient positioning and the procedure. The medical necessity of the nurse practitioner as a first aid attendant was indicated in this case due to the surgical complexity of the case itself and during the surgical case, the surgical nurse practitioner was working the back table while my medical surgical tech, ARMANDO, was directly assisting me. J. Marco A Landrum MD JRGalindo/DL , 09:54 AM , 10:16 AM
[2017-11-15] MEDS: LACTATED RINGER'S 1000 ML INJ 1,000 ML IV SCH ×2 (10:30→20:43)
[2017-11-15] MEDS ORDERED: *morphine SULFATE 4 MG/ML PERIprocedure ONLY ONE ×2 (10:30→10:43)
[2017-11-15] MEDS ORDERED: DO NOT ADM ANY ANTICOAGULANT DRUGS PRN (11:30)
--- NOTE | 2017-11-15 11:33 | RADRPT ---
EXAM DATE/TIME: 11/15/2017 10:42 [facility] COMPARISON: No previous studies available for comparison. INDICATIONS : Post op right knee MEDICAL HISTORY : None. SURGICAL HISTORY : None. ENCOUNTER: Initial ACUITY: 1 day PAIN SCORE: 8/10 LOCATION: Right knee FINDINGS: Status post total knee arthroplasty with intact hardware and normal alignment of the osseous chest. Scattered superficial and deep soft tissue gas. No metallic radiopaque foreign bodies. CONCLUSION: Expected postsurgical changes status post total knee arthroplasty. Bear De Los Santos MD on November 15, 2017 at 11:30 Board Certified Radiologist. This report was verified electronically.
[2017-11-15 12:00] VITALS: BP 121/60; PULSE 75; RESP 20; TEMP 97.2; O2SAT 97
[2017-11-15] MEDS ORDERED: ONDANSETRON HCL 4 MG/2 ML VIAL IV ONE (12:00)
[2017-11-15] MEDS ORDERED: PROPOFOL 200 MG/20 ML AMP IV ONE (12:00)
[2017-11-15] MEDS ORDERED: ePHEDrine/NS 25 MG/5 ML SYRINGE IV ONE (12:00)
[2017-11-15] MEDS ORDERED: LIDOCAINE HCL 1% PF 5 ML SYRINGE OTHER ONE (12:00)
[2017-11-15] MEDS ORDERED: ROCURONIUM INJ 50 MG/5 ML SYRINGE IV PUSH ONE (12:00)
--- NOTE | 2017-11-15 13:00 | HHI.PR ---
Immediate Post Op Note Procedure Date: Nov 15, 2017 Pre Op Diagnosis: Osteoarthritic degeneration, right knee Post Op Diagnosis: Osteoarthritic degeneration, right knee Surgeon: Ad Landrum MD Platen Grinder(s): Anitra ROBERTS Procedure: Right total knee Arthroplasty Complications: none Specimen(s) removed: none Estimated blood loss: 100cc Anesthesia: General Drains: None IVF Urinary Output (mLs): 0 (No sullivan) Tourniquet time (min at mmHg) 52 mins at 300 mmHg Patient to: PACU Patient Condition: Good Implant/Devices: SEE IMPLANT LOG (if applicable) Date/Time of Procedure: SEE SURGICAL CARE RECORD Anitra Douglas Nov 15, 2017 13:00
[2017-11-15 16:08] VITALS: BP 116/66; PULSE 69; RESP 17; TEMP 98.4; O2SAT 99
[2017-11-15 16:32] VITALS: O2SAT 98
[2017-11-15 20:00] VITALS: BP 143/60; PULSE 71; RESP 18; TEMP 97.8; O2SAT 97
[2017-11-15] MEDS: ACETAMINOPHEN/HYDROcodone 325 MG/7.5 MG TAB PO PRN (22:08)
[2017-11-16] VITALS (7 sets, daily range): BP systolic 117–133; BP diastolic 53–70; PULSE 73–86; RESP 18–20; TEMP 97.5–98.1; O2SAT 94–100
[2017-11-16 04:16] LABS: HEMOGLOBIN 11.4 GM/DL (11.6-15.3)
[2017-11-16] MEDS: LEVOTHYROXINE SODIUM 100 MCG TAB PO SCH (06:25)
[2017-11-16] MEDS: LEVOTHYROXINE SODIUM 75 MCG TAB PO SCH (06:25)
[2017-11-16] MEDS: LISINOPRIL 10 MG TAB PO SCH (07:57)
[2017-11-16] MEDS: buPROPion HCL 150 MG SUSTAINED RELEASE TAB PO SCH (07:57)
[2017-11-16] MEDS: APIXABAN 2.5 MG TABLET PO SCH ×2 (07:57→22:47)
[2017-11-16] MEDS: VERAPAMIL HCL 240 MG SUSTAINED RELEASE TAB PO SCH (07:57)
[2017-11-16] MEDS: LACTATED RINGER'S 1000 ML INJ 1,000 ML IV SCH ×2 (10:00→22:30)
[2017-11-16] MEDS ORDERED: HYDR-3580 PO (11:41)
--- NOTE | 2017-11-16 11:45 | PD.ORT.PN ---
Subjective Subjective Remarks Pt fairly comfortable today. Minimal pain. Objective Vitals Vital Signs Date Time Temp Pulse Resp B/P (MAP) Pulse Ox O2 Delivery O2 Flow Rate FiO2 11/16/17 11:32 97.9 79 18 127/70 (89) 99 11/16/17 07:43 97.8 82 18 133/63 (86) 100 11/16/17 04:00 97.8 73 18 130/61 (84) 97 11/16/17 00:01 98.1 81 18 127/62 (83) 96 11/15/17 20:00 97.8 71 18 143/60 (87) 97 11/15/17 16:32 98 Nasal Cannula 2.00 11/15/17 16:08 98.4 69 17 116/66 (83) 99 11/15/17 12:00 97.2 75 20 121/60 (80) 97 I/O 11/15/17 11/15/17 11/15/17 11/16/17 11/16/17 11/16/17 07:00 15:00 23:00 07:00 15:00 23:00 Intake Total 1615 ml 100 ml 560 ml Output Total 3100 ml Balance -1485 ml 100 ml 560 ml Intake Oral 500 ml 460 ml IV Total 1115 ml 100 ml 100 ml Output Estimated Blood Loss 100 ml Other 3000 ml # Voids 2 2 # Bowel Movements 0 Result Diagram: 11/16/17 0355 Imaging Last 48 hours Impressions Knee X-Ray 11/15/17 0728 Signed Impressions: Service Date/Time: Wednesday, November 15, 2017 10:42 - CONCLUSION: Expected postsurgical changes status post total knee arthroplasty. Bear De Los Santos MD Objective Remarks In bed at moment. NV intact. No calf tenderness. Assessment & Plan Ortho Post Op Day #: 1 Problem List: Assessment and Plan Cont PT, SNF when bed available. Angelo Landrum MD November 16, 2017 11:45
[2017-11-16] MEDS: ACETAMINOPHEN/HYDROcodone 325 MG/7.5 MG TAB PO PRN ×3 (11:58→22:48)
[2017-11-16] MEDS: DOCUSATE SODIUM 100 MG CAP PO SCH (22:47)
[2017-11-16] MEDS: MULTIVITAMINS/MINERALS THERAPEUTIC TAB PO SCH (22:47)
[2017-11-17] VITALS: BP 112/59; PULSE 82; RESP 20; TEMP 98.5; O2SAT 95
[2017-11-17 04:00] VITALS: BP 110/55; PULSE 86; RESP 20; TEMP 99.3; O2SAT 95
[2017-11-17] MEDS: LEVOTHYROXINE SODIUM 100 MCG TAB PO SCH (04:45)
[2017-11-17] MEDS: LEVOTHYROXINE SODIUM 75 MCG TAB PO SCH (04:45)
[2017-11-17] MEDS: ACETAMINOPHEN/HYDROcodone 325 MG/7.5 MG TAB PO PRN ×2 (04:46→12:35)
[2017-11-17 07:05] LABS: HEMATOCRIT 31.2 % (35.0-46.0); HEMOGLOBIN 10.8 GM/DL (11.6-15.3)
[2017-11-17 08:00] VITALS: BP 111/51; PULSE 79; RESP 18; TEMP 97.6; O2SAT 97
--- NOTE | 2017-11-17 08:13 | PD.ORT.PN ---
Subjective Subjective Remarks Pt fairly comfortable today. Minimal pain. Objective Vitals Vital Signs Date Time Temp Pulse Resp B/P (MAP) Pulse Ox O2 Delivery O2 Flow Rate FiO2 11/17/17 04:00 99.3 86 20 110/55 (73) 95 11/17/17 00:00 98.5 82 20 112/59 (76) 95 11/16/17 20:00 97.5 86 20 119/59 (79) 94 11/16/17 16:00 97.9 80 18 117/53 (74) 96 11/16/17 12:58 18 11/16/17 11:32 97.9 79 18 127/70 (89) 99 11/16/17 10:40 97 21 I/O 11/16/17 11/16/17 11/16/17 11/17/17 11/17/17 11/17/17 07:00 15:00 23:00 07:00 15:00 23:00 Intake Total 560 ml 960 ml 320 ml Balance 560 ml 960 ml 320 ml Intake Oral 460 ml 960 ml 320 ml IV Total 100 ml # Voids 2 2 3 # Bowel Movements 0 0 0 Result Diagram: 11/17/17 0540 Imaging Last 48 hours Impressions Knee X-Ray 11/15/17 0728 Signed Impressions: Service Date/Time: Wednesday, November 15, 2017 10:42 - CONCLUSION: Expected postsurgical changes status post total knee arthroplasty. Bear De Los Santos MD Objective Remarks In bed at moment. NV intact. No calf tenderness. Assessment & Plan Ortho Post Op Day #: 2 Problem List: Assessment and Plan Cont PT, SNF when bed available. Angelo Landrum MD November 17, 2017 08:12
--- NOTE | 2017-11-17 08:14 | HHI.DS ---
Discharge Summary Admission Date Nov 15, 2017 at 05:18 Discharge Date: November 17, 2017 Admitting Diagnosis Osteoarthritic degeneration right knee Diagnosis: (1) Status post total right knee replacement ICD Codes: Z96.651 - Presence of right artificial knee joint Brief History This is a 57 year old female patient CBC/BMP: 11/17/17 0540 Significant Findings Laboratory Tests Test 11/16/17 03:55 11/17/17 05:40 Hemoglobin 11.4 GM/DL (11.6-15.3) 10.8 GM/DL (11.6-15.3) Hematocrit 33.0 % (35.0-46.0) 31.2 % (35.0-46.0) PE at Discharge In bed at moment. NV intact. No calf tenderness. Hospital Course This patient underwent a right total knee arthroplasty on day of admission. She received a course of prophylactic IV antibiotics and within 23 hours started on anticoagulation therapy. She continued to improve remaining afebrile vital signs stable neurovascularly intact. She tolerated food and fluid well and out of bed with physical therapy. She tolerated p.o. pain meds and was discharged on postoperative day #2 in good condition to nursing home facility for continuation of care and follow-up. Pt Condition on Discharge: Good Discharge Disposition: Discharge to SNF Discharge Instructions Diet Instructions: As Tolerated, No Restrictions Activities You Can Perform: Full Weight Bearing, Shower Only-No Bath Activities to Avoid: Bathing, Driving Angelo Landrum MD November 17, 2017 08:14
[2017-11-17] MEDS: DOCUSATE SODIUM 100 MG CAP PO SCH (09:25)
[2017-11-17] MEDS: MULTIVITAMINS/MINERALS THERAPEUTIC TAB PO SCH (09:25)
[2017-11-17] MEDS: VERAPAMIL HCL 240 MG SUSTAINED RELEASE TAB PO SCH (09:25)
[2017-11-17] MEDS: APIXABAN 2.5 MG TABLET PO SCH (09:26)
[2017-11-17] MEDS: LISINOPRIL 10 MG TAB PO SCH (09:26)
[2017-11-17] MEDS: buPROPion HCL 150 MG SUSTAINED RELEASE TAB PO SCH (09:26)
[2017-11-17] MEDS ORDERED: BACITRACIN OINT 0.9 GM PKT TOP PRN (10:15)
[2017-11-17 12:00] VITALS: BP 131/60; PULSE 86; RESP 18; TEMP 97.7; O2SAT 98
[2017-11-17 13:16] VITALS: O2SAT 95
[2017-11-17] MEDS ORDERED: MAGNESIUM HYDROXIDE SUSP 30 ML CUP PO ONE (14:45)
[2017-11-17] MEDS ORDERED: MAGNESIUM HYDROXIDE SUSP 30 ML CUP PO SCH (21:00)
== END 2017-11-17 16:18 ==
LOC: INTOOBSV 05:18 → HSDI 05:18 → EDSTATUS 07:30 → N06B 11:33
PROVIDERS: ADMIT Surgery; ATTEND Surgery
DX: M17.11 Unilateral primary osteoarthritis, right knee (principal); I10 Essential (primary) hypertension; E66.01 Morbid (severe) obesity due to excess calories
CPT/HCPCS: 01400; 27446; 73560; 85014; 85018; 86850; 86900; 86901; 94150; 96361; 96365; 97110; 97116; 97150; 97162; 97167; C1776; C9290; G0378; J0690; J1100; J2250; J2270; J2405; J3010; J3370; J7120; L1830